=== PATIENT | female | born 1975 | race Hispanic/Latino ===

== ENCOUNTER 2016-10-02 14:53 | Emergency (ER) | payer OTHER ==
[~2016-10-02] VITALS: Ht 157.5 cm; Wt 52.7 kg
[~2016-10-02 14:53] MED LIST: ALBU18HF; FLUT12AE8 IH; IBUP800T28 PO; MTH4T PO; OXYC1TAB24 PO
[2016-10-02 15:28] VITALS: BP 106/66; PULSE 75; RESP 18; O2SAT 99
[2016-10-02 16:38] LABS: BASOPHILS % (AUTO) 0.5 % (0-3); EOSINOPHILS % (AUTO) 3.2 % (0-5); MONOCYTES % (AUTO) 6.3 % (4-12); Mean Corpuscular Hemoglobin 24.8 pg (27.0-35.0); Mean Corpuscular Volume 79.1 fL (81-100); NEUTROPHILS % (AUTO) 65.6 % (40-74); Platelet Count 325 bil/L (150-400)
--- NOTE | 2016-10-02 17:46 | ED.REPORT ---
HPI-Abd Pain F 40 and Over Date of Service Oct 02, 2016 ED Provider: Sandy VELEZ Ms. Robertson is a 41 y/o woman who presents today for abdominal pain that started 1 week ago. It is similar to when she had "polyps" in 2015. She had nausea, vomiting, and diarrhea today. No hematemesis. Hematochezia last week when she was straining to have a bowel movement. She also noticed bloody vaginal discharge at the same time. Nursing Notes Stated Complaint: ABD PAIN,LEG NUMBNESS,HEADACHE,DIZZY Chief Complaint: Female Abdominal Pain Allergies: Coded Allergies: morphine (Verified Allergy, Intermediate, rash, 05/16/15) penicillin (Verified Allergy, Intermediate, rash, 05/16/15) azithromycin (Verified Allergy, Unknown, itching, anxious, 07/11/16) Scheduled Fluticasone Propionate (Flovent HFA 110 mcg) 12 Gm Aer.w.adap 2 PUFFS IH BID Methylprednisolone (Medrol) 21 Tab/Pkg Tablet 1 TAB PO UD Follow package instructions Scheduled PRN Ibuprofen (Ibuprofen) 800 Mg Tablet 800 MG PO TID PRN PRN For Pain Ibuprofen (Ibuprofen) 600 Mg Tablet 600 MG PO QID PRN PRN For Pain oxyCODONE-Acetaminophen 5-325 mg (oxyCODONE-Acetaminophen 5-325 mg) 1 Each Tablet 1-2 TAB PO Q6H PRN PRN For Pain Miscellaneous Medications Albuterol Sulfate (Ventolin HFA Inhaler) 200 Puff/18 Gm Inhaler General Time Seen by MD: 17:46 Chief Complaint Abdominal pain Left side of abdomen and wraps around to back Hx Obtained From: Patient Arrived By: Walk-in Sudden in Onset?: No Onset Occurred: 1 week ago Context of Onset: Eating Symptom Duration: Waxes and wanes Progression since Onset: Gradually worsening Location: : LLQ: LUQ Quality: Sharp Radiation: : Back Associated with: Reports: Anorexia, Diarrhea (x1 today), Nausea, Urinary frequency, Vomiting (x1 today), Denies: Vaginal discharge Status: Last NL menst cycle (1-2 days ago, prior to that no period since ) Risk Factors Ectopic Risk Stratification Tubal Ligation Past Medical History Past Medical History Kidney Stones Asthma Colonic polyps - not removed Anemia Intensive care for pneumonia Past Surgical History Reports: Appendectomy Reports: Tubal ligation Smoking History Light Tobacco Smoker (quit smoking 2015) Social History Alcohol Use: Denies alcohol use Drug Use: Denies drug use Ambulatory Status Independent Review of Systems numbness in left leg, no trouble walking Basic Review of Systems Eyes: Vision NL, No discharge ENT: Hearing NL, No pain, No nasal congestion, No pharyngeal pain Hematologic: No bruising Endocrine: No cold intolerance, No heat intolerance, No weight gain, No weight loss Skin: No bruising, No rash, No itch Allergy / Immune: No allergy Neurologic: NL mental status, No weakness Psychiatric: Normal thought content Constitutional: Denies: Chills, Fatigue, Fever Cardiovascular: Denies: Chest pain, Dyspnea on exertion, Edema Female: Reports: Dysuria, Urinary frequency, Denies: Hematuria, , Vaginal discharge Musculoskeletal: Reports: Back pain, Extremity pain, Extremity swelling, Denies: Joint pain, Joint swelling, Neck pain Physical Exam Vital Signs Vital Signs (First) Date Time Temp Pulse Resp B/P Pulse Ox O2 Delivery O2 Flow Rate FiO2 10/02/16 15:28 36.6 75 18 106/66 99 Room Air Initial VS: Reviewed Head / Eyes: Atraumatic, Normocephalic, PERRL ENT: Mucous membranes moist, Conjunctiva normal, No scleral icterus Neck: Supple, Non-tender, Full range of motion Lymphatic: No lymphadenopathy Extremities: Vascular intact, Neuro intact, No swelling Skin: Warm, Dry, No cyanosis Neurologic: Alert, Oriented, Nonfocal Psychiatric: Mood/affect normal, Behavior normal, Normal thought content Abdomen: Soft, BS normoactive, No palpable mass Tenderness/Guarding/Rebound: Positive: Tender periumbilical (on left side) Organomegaly / Mass / Hernia: Negative: Hepatomegaly, Splenomegaly Neurologic: Oriented X3, No motor deficits, No sensory deficits, CN II - XII intact Left Leg / Calf: Positive: Tenderness present... (Mild) Interpretation & Diagnostics Lab Results Interpretation Result Diagram: 10/02/16 1624 10/02/16 1624 Test 10/02/16 16:10 10/02/16 16:24 10/02/16 16:34 Hold Urine Received (Received) White Blood Count 7.4th/mm3 (3.8-10.1) Red Blood Count 4.35mil/mm3 (3.90-5.20) Hemoglobin 10.8g/dL (12.0-15.6) Hematocrit 34.4% (35.0-46.0) Mean Corpuscular Volume 79.1fL (81-100) Mean Corpuscular Hemoglobin 24.8pg (27.0-35.0) Mean Corpuscular Hemoglobin Concent 31.4% (32.0-37.0) Red Cell Distribution Width 17.4% (12.3-15.4) Platelet Count 325bil/L (150-400) Neutrophils (%) (Auto) 65.6% (40-74) Lymphocytes (%) (Auto) 24.3% (14-46) Monocytes (%) (Auto) 6.3% (4-12) Eosinophils (%) (Auto) 3.2% (0-5) Basophils (%) (Auto) 0.5% (0-3) Sodium Level 139mEq/L (134-144) Potassium Level 3.8mEq/L (3.5-5.2) Chloride Level 102mEq/L (97-108) Carbon Dioxide Level 24mmol/L (18-29) Blood Urea Nitrogen 10mg/dL (6-24) Creatinine 0.46mg/dL (0.57-1.00) Estimat Glomerular Filtration Rate 212mL/min (>59) Glucose Level 89mg/dL (60-99) Calcium Level 9.1mg/dL (8.5-10.1) Total Bilirubin 0.2mg/dL (0.0-1.2) Aspartate Amino Transf (AST/SGOT) 15U/L (0-50) Alanine Aminotransferase (ALT/SGPT) 14U/L (0-32) Alkaline Phosphatase 80U/L (25-150) Total Protein 7.5g/dL (6.4-8.4) Albumin 4.1g/dL (3.4-5.0) Hold Hatch Top Tube Received (Received) Urine Color Yellow (YELLOW) Urine Appearance Clear (CLEAR,HAZY) Urine pH 6.0 (5.0-8.0) Urine Specific [place] 1.025 (1.003-1.035) Urine Protein Negativemg/dL (NEG,TRACE) Urine Glucose (UA) Negativemg/dL (NEGATIVE) Urine Ketones Negativemg/dL (NEGATIVE) Urine Occult Blood Small (NEGATIVE) Urine Nitrite Negative (NEGATIVE) Urine Bilirubin Negative (NEGATIVE) Urine Urobilinogen Normalmg/dL (NORMAL) Urine Leukocyte Esterase Negative (NEGATIVE) Urine RBC 0-2/hpf (0-2) Urine WBC 0-5/hpf (0-5) Urine Epithelial Cells None/hpf (NONE-MOD) Urine Crystals None seen (NONE SEEN) Urine Bacteria Few/hpf (NONE-FEW) Urine Hyaline Casts None/lpf (NONE) Urine Granular Casts None seen (NONE SEEN) Urine Waxy Casts None seen (NONE SEEN) Urine Red Blood Cell Casts None seen (NONE SEEN) Urine White Blood Cell Casts None seen (NONE SEEN) Urine Mucus Present (None Seen) Urine Trichomonas None seen (NONE SEEN) Urine Yeast None (NONE SEEN) Urinalysis Comment None Urine Culture Reflexed Indicated Re-Eval/Medical Decision Med Decision/Clinical Course 1. Abdominal pain -Pt has CT KUB done on 08/21/2016 that showed a kidney stone. -UA done was not concerning for a UTI -CMP and CBC done today is stable compared to previous labs -Urine test was negative 2. Left leg numbness -Pt is able to walk and no significant LE physical exam findings Discharge & Departure Shift Change Sign-Out Laboratory Evaluation: Lab evaluation discussed Primary Impression: Pain, abdominal, nonspecific Additional Impression: Left leg numbness Disposition: Home Discharge Condition All VS Reviewed: Yes Patient Instructions: Acute Abdominal Pain (ED) Additional Instructions: Your abdominal pain is left-sided and does appear to be life threatening. Your urine test done in the ED was not concerning for a bladder infection. It was sent for culture, so you will be notified if it shows a bladder infection and you need to start medication. Your blood tests done today are not concerning and are stable. Please follow up with a behavioral intervention specialist for a possible colonoscopy. Consider getting a primary care provider. For your leg, you can try taking ibuprofen [id number] as needed for pain with a meal. this has been electronically sent to [facility] for you. Thank you so much for understanding the long wait with the busy department tonight. Referrals: [facility] (PCP) Attending Statement seen and examined with Dr Velázquez Agree with assessment, plan and documentation as above Kia Delgado MD Oct 02, 2016 17:46 Nathalie Velázquez DO Oct 02, 2016 18:03
[2016-10-02 18:42] VITALS: BP 98/60; PULSE 72; RESP 15; O2SAT 99
[2016-10-02 18:49] LABS: APPEARANCE,URINE CLEAR (CLEAR,HAZY); COLOR,URINE YELLOW (YELLOW)
[2016-10-02 18:50] LABS: OCCULT BLOOD,URINE SMALL (NEGATIVE); UROBILINOGEN,URINE NORMAL (NORMAL)
[2016-10-02] MEDS ORDERED: IBUP-1827 PO (20:11)
[2016-10-02 20:18] VITALS: BP 128/72; PULSE 84; RESP 14; O2SAT 98
== END 2016-10-02 20:21 | disposition home or self-care (01) ==
LOC: SED 14:53
DX: R10.32 Left lower quadrant pain (principal); R20.0 Anesthesia of skin; R10.12 Left upper quadrant pain; R11.2 Nausea with vomiting, unspecified; R19.7 Diarrhea, unspecified; J45.909 Unspecified asthma, uncomplicated; F17.200 Nicotine dependence, unspecified, uncomplicated; Z88.0 Allergy status to penicillin; Z88.1 Allergy status to other antibiotic agents; Z88.5 Allergy status to narcotic agent

== ENCOUNTER 2017-06-05 15:26 | Emergency (ER) | payer SELFPAY ==
[~2017-06-05] VITALS: Ht 157.5 cm; Wt 53.4 kg
[~2017-06-05 15:26] MED LIST changes: +IBUP-1827 PO
[2017-06-05 15:49] VITALS: BP 107/70; PULSE 82; RESP 16; O2SAT 100
[2017-06-05 17:40] LABS: BASOPHILS % (AUTO) 0.7 % (0-3); EOSINOPHILS % (AUTO) 4.3 % (0-5); MONOCYTES % (AUTO) 5.6 % (4-12); Mean Corpuscular Hemoglobin 25.6 pg (27.0-35.0); Mean Corpuscular Volume 81.7 fL (81-100); NEUTROPHILS % (AUTO) 57.5 % (40-74); Platelet Count 326 bil/L (150-400)
--- NOTE | 2017-06-05 19:25 | ED.REPORT ---
HPI-General Illness Date of Service Jun 05, 2017 ED Provider: Rafy Cornell MD The patient is a 42 year old female with a history of kidney stones, anemia, colon polyps and s/p tubal ligation who presents to the ED with lower, left- sided abdominal pain that began 1.5 weeks ago. She also endorses left flank pain , "dripping" vaginal bleeding. The vaginal bleeding is reportedly different than her regular menstrual period. Her last menstrual cycle was 2 months ago and has been irregular since she turned 38. She is not currently on control. She has no history of sexually transmitted infections. No dysuria or urinary frequency. She describes her pain as crampy/dull. It is located in her left groin/left lower quadrant but sometimes radiates up to her left flank. She has no history of kidney stones. Nursing Notes Stated Complaint: STOMACH PAIN, SWOLLEN LEGS, BLEEDING, ANEMIC Chief Complaint: Female Abdominal Pain Nursing Notes Reviewed: Yes Allergies: Coded Allergies: morphine (Verified Allergy, Intermediate, rash, 06/05/17) penicillin (Verified Allergy, Intermediate, rash, 06/05/17) azithromycin (Verified Allergy, Unknown, itching, anxious, 06/05/17) Scheduled Fluticasone Propionate (Flovent HFA 110 mcg) 12 Gm Aer.w.adap 2 PUFFS IH BID Methylprednisolone (Medrol) 21 Tab/Pkg Tablet 1 TAB PO UD Follow package instructions Scheduled PRN Ibuprofen (Ibuprofen) 800 Mg Tablet 800 MG PO TID PRN PRN For Pain Ibuprofen (Ibuprofen) 600 Mg Tablet 600 MG PO QID PRN PRN For Pain oxyCODONE-Acetaminophen 5-325 mg (oxyCODONE-Acetaminophen 5-325 mg) 1 Each Tablet 1-2 TAB PO Q6H PRN PRN For Pain Miscellaneous Medications Albuterol Sulfate (Ventolin HFA Inhaler) 200 Puff/18 Gm Inhaler General Time Seen by MD: 19:24 Chief Complaint Abdominal pain Hx Obtained From: Patient Arrived By: Walk-in Sudden in Onset?: No Onset Occurred: 1 week ago Symptom Duration: Since onset Location: : Abdomen Quality: Painful Radiation: : Does not radiate Severity: Current: Moderate Severity: Maximum: Moderate Associated with: Reports: Abdominal pain Pertinent Negative: Pt denies other symptoms Recent Healthcare: No recent doctor visit, No recent hospitalization Past Medical History Past Medical History Kidney Stones Asthma Colonic polyps - not removed Anemia Intensive care for pneumonia Past Surgical History Reports: Appendectomy Reports: Tubal ligation Smoking History Light Tobacco Smoker Social History Alcohol Use: Denies alcohol use Drug Use: Denies drug use Other Social History: Good social support, Local resident Ambulatory Status Independent Review of Systems Full Review of Systems Cardiovascular: Reports: Edema GI: Reports: Abdominal pain Female: Reports: Flank pain, Vaginal bleeding - abnl Musculoskeletal: Reports: Back pain Complete sys rev & neg: except as marked. Physical Exam Vital Signs Vital Signs Date Time Temp Pulse Resp B/P Pulse Ox O2 Delivery O2 Flow Rate FiO2 06/05/17 21:54 74 102/52 100 Room Air 06/05/17 15:49 36.9 82 16 107/70 100 Room Air Initial VS: Reviewed Head / Eyes: Atraumatic, Normocephalic, PERRL Neck: Supple, Non-tender, Full range of motion Extremities: Vascular intact, Neuro intact, No swelling, No tenderness Skin: Warm, Dry, No cyanosis Neurologic: Alert, Oriented, Nonfocal Psychiatric: Mood/affect normal, Behavior normal, Normal thought content General/Constitutional: Awake, Alert, No acute distress Head / Eyes: Atraumatic, Normocephalic, PERRL Respiratory / Chest: Atraumatic, Breath sounds NL, Breath sounds = bilat, No respiratory distress Cardiovascular: Heart rate NL, Regular rhythm, Heart sounds NL, No gallop, No murmurs, No rubs Abdomen: Atraumatic, Soft, No distention Tenderness/Guarding/Rebound: Positive: Tender LLQ... Back: Atraumatic Flank / Spine / Paraspinal: Positive: Flank tender L (Percussive) Female Genitourinary: Field Engineer present, Atraumatic, External genitalia NL Vaginal mucous normal Scant amout blood at cervix; no active bleeding Interpretation & Diagnostics Lab Results Interpretation Result Diagram: 06/05/17 1732 06/05/17 1732 Test 06/05/17 17:32 06/05/17 17:36 06/05/17 19:25 06/05/17 20:23 White Blood Count 7.4th/mm3 (3.8-10.1) Red Blood Count 3.98mil/mm3 (3.90-5.20) Hemoglobin 10.2g/dL (12.0-15.6) Hematocrit 32.5% (35.0-46.0) Mean Corpuscular Volume 81.7fL (81-100) Mean Corpuscular Hemoglobin 25.6pg (27.0-35.0) Mean Corpuscular Hemoglobin Concent 31.4% (32.0-37.0) Red Cell Distribution Width 16.7% (12.3-15.4) Platelet Count 326bil/L (150-400) Neutrophils (%) (Auto) 57.5% (40-74) Lymphocytes (%) (Auto) 31.8% (14-46) Monocytes (%) (Auto) 5.6% (4-12) Eosinophils (%) (Auto) 4.3% (0-5) Basophils (%) (Auto) 0.7% (0-3) Sodium Level 138mEq/L (134-144) Potassium Level 4.1mEq/L (3.5-5.2) Chloride Level 101mEq/L (97-108) Carbon Dioxide Level 24mmol/L (18-29) Blood Urea Nitrogen 9mg/dL (6-24) Creatinine 0.54mg/dL (0.57-1.00) Estimat Glomerular Filtration Rate 176mL/min (>59) Glucose Level 104mg/dL (60-99) Calcium Level 9.3mg/dL (8.5-10.1) Magnesium Level 2.0mg/dL (1.6-2.6) Total Bilirubin 0.2mg/dL (0.0-1.2) Aspartate Amino Transf (AST/SGOT) 31U/L (0-50) Alanine Aminotransferase (ALT/SGPT) 35U/L (0-32) Alkaline Phosphatase 112U/L (25-150) Total Protein 7.6g/dL (6.4-8.4) Albumin 3.9g/dL (3.4-5.0) Lipase 34U/L (13-60) Human Chorionic Gonadotropin, Qual Negative (Negative) Hold Hatch Top Tube Received (Received) Hold Urine Received (Received) Urine Color Dark yellow (YELLOW) Urine Appearance Hazy (CLEAR,HAZY) Urine pH 5.5 (5.0-8.0) Urine Specific [place] 1.025 (1.003-1.035) Urine Protein Negativemg/dL (NEG,TRACE) Urine Glucose (UA) Negativemg/dL (NEGATIVE) Urine Ketones Negativemg/dL (NEGATIVE) Urine Occult Blood Large (NEGATIVE) Urine Nitrite Negative (NEGATIVE) Urine Bilirubin Negative (NEGATIVE) Urine Urobilinogen Normalmg/dL (NORMAL) Urine Leukocyte Esterase Negative (NEGATIVE) Urine RBC 3-10/hpf (0-2) Urine WBC 0-5/hpf (0-5) Urine Epithelial Cells Few/hpf (NONE-MOD) Urine Crystals None seen (NONE SEEN) Urine Bacteria None/hpf (NONE-FEW) Urine Hyaline Casts None/lpf (NONE) Urine Granular Casts None seen (NONE SEEN) Urine Waxy Casts None seen (NONE SEEN) Urine Red Blood Cell Casts None seen (NONE SEEN) Urine White Blood Cell Casts None seen (NONE SEEN) Urine Mucus None seen (None Seen) Urine Trichomonas None seen (NONE SEEN) Urine Yeast None (NONE SEEN) Urinalysis Comment None Urine Culture Reflexed Not indicated US Focused non-OB Pelvis IMPRESSION: Possible uterine adenomyosis. Incidentally noted is a 6 mm right renal stone with no hydronephrosis Exam Interpreted by: Radiologist Re-Eval/Medical Decision Med Decision/Clinical Course The patient is a 42-year-old female with a history of kidney stones and previous tubal ligation who presents to the emergency department complaining of vague/cramping left lower quadrant/left flank abdominal pain as well as vaginal bleeding in the setting of her regular baseline menstrual periods. Here in the emergency department she appears somewhat uncomfortable but was otherwise hemodynamically stable in no apparent distress with examination as above. Laboratory studies notable as below: CBC unremarkable except Hct 32.5 CMP unremarkable HCG negative UA unconvincing for UTI 3-10 RBC The patient received the blow medications with good effect: Zofran Oxycodone US abdomen: Thickened endometrium with significant vascularity Possible uterine adenomyosis. Incidentally noted is a 6 mm right renal stone with no hydronephrosis Serial abdominal examinations remained reassuring. Nature of the pain is somewhat suggestive of renal colic though not classically thereof. Presence of vaginal bleeding does not fit the renal colic picture though may be completely incidental. While she does have a left kidney stone there is no evidence of ureteral stone or hydronephrosis. That being said she may be in the process of passing a stone or a libertarian passed one. In regards to the patient's vaginal bleeding this is not entirely abnormal as she still has occasional menstrual periods and is in the process of going through menopause. She is noted to have thickened endometrium as described above with possible adenomyosis. Pelvic examination reveals a closed cervix with very scant blood and is otherwise unremarkable. There is no abnormal discharge or findings suggestive of pelvic inflammatory disease. She has been referred to [facility] for further workup of her vaginal bleeding if needed. She has been discharged with a prescription for pain medications and advised to return right away should her symptoms worsen. Serial abdominal examinations were benign without any findings suggestive of an acute surgical process. Patient is comfortable with the plan as described above. All questions were answered prior to discharge. Prior to discharge follow-up and return precautions were reviewed in detail with the patient who verbalized understanding and agreement with the plan. The patient was discharged in stable condition. Time of Eval: 20:37 Re-Evaluation/Progress Note: Pt is declining pain medication at this time. Pelvic exam is performed. Pt tolerates. Time of Eval: 21:02 Patient Status: Condition improved Re-Evaluation/Progress Note: Patient condition is re-evaluated. She is informed of her current and pending results. All questions about the intended treatment plan are addressed. Patient understands and agrees with the plan. Counseled Regarding: Diagnosis, Lab results, Need for follow-up, When/why to return to ED Discharge & Departure Primary Impression: Vaginal bleeding Additional Impressions: Abdominal pain Abdominal location: left lower quadrant Qualified Code: R10.32 - Left lower quadrant pain Thickened endometrium Renal calculus, left Disposition: Home Discharge Condition All VS Reviewed: Yes Condition: Improved Patient Instructions: Acute Abdominal Pain (ED), Kidney Stones (ED) Additional Instructions: Thank you for seeking care at emergency room. It is difficult for us to make definitive diagnoses in the ED but your ultrasound revealed a thickened endometrium and this will require follow up. It also revealed a left kidney stone. A clear cause of your pain was not identified. Our primary goal today in the ED was to evaluate you for any life-threatening conditions. Your evaluation was reassuring. Drink plenty of fluids. You will be discharged with a prescription for [place]*. *You have been prescribed a narcotic for pain relief. These drugs are usually combined with acetaminophen (Tylenol#3, Percocet, Darvocet, Anexsia, Vicodin) or aspirin (Empirin#3, Percodan, Synalogs-DC) for increased effect. Narcotics act on the central nervous system to reduce pain; they also impair mental alertness and physical abilities. We advise you not to drink alcohol, drive a car, or operate dangerous equipment when you are taking theses drugs. You can lessen stomach irritation from your medicine by taking it with meals or a full glass of water. Common side effects of narcotics are: Nausea and vomiting, heartburn, consitpation, dizziness, sleepiness, and mood changes. If you have bothersome side effects or symptoms of an allergic reaction (itching, hives, rash), stop taking your medicine and call your doctor or the emergency room right away. Please keep your narcotic medicine well out of the reach of children. You should follow-up with referred [facility] in the next week. You should return to the ED immediately if you develop worsening abdominal pain , vaginal bleeding, fevers, vomiting, lightheadedness, weakness or any other concerning signs or symptoms. Thank you for letting us partake in your care today. [facility] George Villalta MD,Radha Mcconnell MD Scribe Attestation Portions of this note were transcribed by Gil Stuart. I, Dr. Cornell, personally performed the history, physical exam and medical decision-making; I reviewed and confirmed the accuracy of the information in the transcribed note. Signed by: Gil Stuart, 06/05/17. copies to: [facility] JESENIA BENAVIDEZ Beck O MD Jun 05, 2017 19:25 GIL STUART Jun 05, 2017 20:25
[2017-06-05 20:52] LABS: APPEARANCE,URINE HAZY (CLEAR,HAZY); COLOR,URINE DARK YELLOW (YELLOW); OCCULT BLOOD,URINE LARGE (NEGATIVE); PH,URINE 5.5 (5.0-8.0); UROBILINOGEN,URINE NORMAL (NORMAL)
[2017-06-05] MEDS ORDERED: _HYDROcodone/APAP 5-325 mg Tablet PO PRN (21:45)
[2017-06-05 21:54] VITALS: BP 102/52; PULSE 74; O2SAT 100
--- NOTE | 2017-06-06 20:24 | DRSVH ---
PROCEDURE: US PELVIC SONOGRAM + TRANSVAGINAL SONOGRAM INDICATIONS: vag bleed, abd pain, L flank pain TECHNIQUE: Real-time scanning was performed of the pelvic organs, with image documentation. Additional endovagi nal scanning was necessary due to incomplete visualization of the adnexal and endometrial structures by transabdominal scanning. COMPARISON: None. FINDINGS: (orthogonal measurements) Uterus size: 9.27 cm, 5.23 cm, 6.07 cm Endometrium thickness: 1.54 cm Right ovary size: 2.95 cm, 2.32 cm, 3.12 cm Left ovary size: Not visualized. Transabdominal scanning: Limited scanning through the kidneys shows no hydronephrosis. No pathologi c free abdominal or pelvic fluid. Endovaginal scanning: Uterus: Uterus is normal in size and appearance. Endometrium is prominent and mild vascularity is n oted. Ovaries: Simple cysts involve the right ovary largest measuring 19 mm. Left ovary not visualized. 6 mm right renal nonobstructing calcification is noted. IMPRESSION: 1. Prominence of the endometrial complex with mild vascularity which could be associated with adenomy osis in the appropriate clinical setting. Recommend clinical correlation and if indicated short term follow up ultrasound could be performed in 6-12 weeks. 2. 6 mm right renal nonobstructing stone present. Note: These findings are concordant with the preliminary interpretation. Dictated by: Eduardo CONCEPCION Interpreted: Manju Tang MD on 06/06/2017 at 8:52 Approved by: Manju Tang M.D. on 06/06/2017 at 20:22
== END 2017-06-05 22:25 | disposition home or self-care (01) ==
LOC: SED 15:26
DX: N93.9 Abnormal uterine and vaginal bleeding, unspecified (principal); N20.0 Calculus of kidney; R10.32 Left lower quadrant pain; R93.8 Abnormal findings on diagnostic imaging of other specified body structures; J45.909 Unspecified asthma, uncomplicated; K63.5 Polyp of colon; F17.200 Nicotine dependence, unspecified, uncomplicated; Z87.442 Personal history of urinary calculi; Z87.01 Personal history of pneumonia (recurrent); Z98.890 Other specified postprocedural states